=== PATIENT | male | born 1990 | race Caucasian/White ===

== ENCOUNTER 2019-12-31 20:51 | Emergency (ER) | payer SELFPAY ==
[~2019-12-31] VITALS: Ht 175.3 cm; Wt 87.0 kg
[2019-12-31 20:53] VITALS: BP 149/83
--- NOTE | 2019-12-31 20:58 | NUR ---
PT STATES HE HAS NEVER ATTEMPTED SUICIDE BEFORE, AND HAD JUST SMOKED MORE METH THAN 'THIS GIRL' HAD EVER SEEN.
--- NOTE | 2019-12-31 21:40 | NUR ---
PT DC'D WITH COMMUNITY RESOURSES BY ERP, GIVEN BUS PASS AND DIRECTIONS, AMBULATES WITHOUT DIFFICULTY, [id number]
== END 2019-12-31 21:44 | disposition home or self-care (01) ==
LOC: ED 21:41
DX: F10.129 Alcohol abuse with intoxication, unspecified (principal); Z72.9 Problem related to lifestyle, unspecified; F17.210 Nicotine dependence, cigarettes, uncomplicated
CPT/HCPCS: 99283; 99406